=== PATIENT | female | born 1995 | race Caucasian/White ===

== ENCOUNTER 2017-02-03 21:48 | Emergency (ER) | payer OTHER ==
[2017-02-03 22:27] VITALS: BP 116/51; PULSE 95; TEMP 97.9; BMI 21.9
[2017-02-04] MEDS ORDERED: ONDANSETRON *ODT* 4 MG TABLET SL ONE (00:35)
--- NOTE | 2017-02-04 00:35 | PDOC ---
History of Present Illness - General History Source: Patient Exam Limitations: No Limitations - History of Present Illness Initial Comments: 02/04/17 00:39 The patient is a 22 year old female with significant past medical history of asthma who presents to the ED for less than 24 hours of nausea and vomiting. Patient reports she went out drinking last night and woke up today with persistent nausea and several episodes of vomiting. States she is unable to tolerate any fluids or liquids secondary to the nausea and vomiting. Denies any abdominal pain or diarrhea. The patient denies fever, chills, cough, SOB, chest pain, and palpitations. Allergies: NKDA Social History: No alcohol, tobacco, or drug use reported. Past Surgical History: None reported PCP: Dr. Valarie Cochran <Reyna Aguila - Last Filed: 02/04/17 00:39> - General History Source: Patient <BouchraraNiles - Last Filed: 02/04/17 01:45> - General Stated Complaint: LIGHTHEADED/VOMITING BLOOD Time Seen by Provider: 02/04/17 00:32 Past History <Reyna Aguila - Last Filed: 02/04/17 00:39> - Past Medical History Asthma: Yes CVA: No (migraines) GI Disorders: Yes (gastritis,) Psychiatric Problems: Yes (ANXIETY) - Surgical History Abdominal Surgery: Yes (EXP LAP--NEG) - Immunization History Immunization Up to Date: Yes - Psycho/Social/Smoking Cessation Hx Anxiety: Yes Suicidal Ideation: No Smoking History: Never smoked Have you smoked in the past 12 months: No Information on smoking cessation initiated: No Hx Alcohol Use: No Drug/Substance Use Hx: No Substance Use Type: Alcohol <Niles Garcia - Last Filed: 02/04/17 01:45> - Past Medical History Allergies/Adverse Reactions: Allergies Allergy/AdvReac Type Severity Reaction Status Date / Time No Known Drug Allergies Allergy Verified 02/04/17 01:13 pineapple Allergy Swelling Verified 02/03/17 22:23 Home Medications: Ambulatory Orders Ondansetron [Zofran *Odt*] 4 mg SL TID #30 od.tablet 02/04/17 Review of Systems - Review of Systems Able to Perform ROS?: Yes Comments:: 02/04/17 00:39 CONSTITUTIONAL: +decreased PO intake Absent: fever, no chills, no fatigue EYES: Absent: visual changes ENT: Absent: ear pain, no sore throat CARDIOVASCULAR: Absent: chest pain, no palpitations RESPIRATORY: Absent: cough, no SOB GI: +nausea, vomiting Absent: abdominal pain, no constipation, no diarrhea GENITOURINARY: Absent: dysuria, no frequency, no hematuria MUSCULOSKELETAL: Absent: back pain, no arthralgia, no myalgia SKIN: Absent: rash NEURO: Absent: headache <Reyna Aguila - Last Filed: 02/04/17 00:39> *Physical Exam - Vital Signs Last Vital Signs Temp Pulse Resp BP Pulse Ox 97.9 F 95 H 16 116/51 99 02/03/17 22:23 02/03/17 22:23 02/03/17 22:23 02/03/17 22:23 02/03/17 22:23 - Physical Exam Comments: 02/04/17 00:40 GENERAL: Well-appearing, well-nourished. No apparent distress. HEENT: Normocephalic, atraumatic. PERRL, EOM intact. Slightly dry oral mucosa CARDIOVASCULAR: Normal S1, S2. Regular rate and rhythm. PULMONARY: Clear to auscultation bilaterally. ABDOMEN: Soft, non-distended, non-tender. EXTREMITIES: Normal ROM in all four extremities. No gross deformities. SKIN: Warm, dry. No rash NEUROLOGICAL: No focal neurological deficits. <Reyna Aguila - Last Filed: 02/04/17 00:39> - Vital Signs Last Vital Signs Temp Pulse Resp BP Pulse Ox 97.9 F 95 H 16 116/51 99 02/03/17 22:23 02/03/17 22:23 02/03/17 22:23 02/03/17 22:23 02/03/17 22:23 <Niles Garcia - Last Filed: 02/04/17 01:45> Medical Decision Making - Medical Decision Making 02/04/17 01:45 Dr. Garcia: The scribe's documentation has been prepared under my direction and personally reviewed by me in its entirery. I confirm that the note above accurately reflects all work, treatment, procedures, and medical decision making performed by me. <Niles Garcia - Last Filed: 02/04/17 01:45> *DC/Admit/Observation/Transfer - Attestations Scribe Attestion: 02/04/17 00:40 Documentation prepared by Reyna Aguila, acting as medical support assistant for Niles Garcia MD/DO. <Reyna Aguila - Last Filed: 02/04/17 00:39> - Discharge Dispostion Admit: No <Niles Garcia - Last Filed: 02/04/17 01:45> Diagnosis at time of Disposition: Nausea, Gastritis - Discharge Dispostion Disposition: HOME Condition at time of disposition: Stable - Prescriptions Prescriptions: Ondansetron [Zofran *Odt*] 4 mg SL TID #30 od.tablet - Referrals Referrals: Valarie Cochran MD [Primary Care Provider] - Rey Verdin MD [Staff Physician] - - Patient Instructions Printed Discharge Instructions: DI for Nausea -- Adult, DI for Gastritis
[2017-02-04] MEDS ORDERED: ONDANSETRON *ODT* 4 MG TABLET ONE (00:57)
== END 2017-02-04 01:58 | disposition home or self-care (01) ==
LOC: JER 21:48
DX: K29.70 Gastritis, unspecified, without bleeding (principal); G43.909 Migraine, unspecified, not intractable, without status migrainosus; F41.9 Anxiety disorder, unspecified; J45.909 Unspecified asthma, uncomplicated
CPT/HCPCS: 99281-25; 99282-25

== ENCOUNTER 2017-04-30 13:07 | Day surgery (SDC) | payer OTHER ==
[2017-04-28 13:52] VITALS: BMI 21.0
[2017-04-30] MEDS ORDERED: PROPOFOL 20 ML ONE (14:21)
[2017-04-30 15:27] VITALS: TEMP 97
[2017-04-30 16:16] VITALS: BP 113/73; PULSE 77
== END 2017-04-30 16:16 | disposition home or self-care (01) ==
LOC: JASU-ENDO 13:07
PROVIDERS: ATTEND Internal Medicine Gastroenterology
PROC: 0DJD8ZZ Inspection of Lower Intestinal Tract, Via Natural or Artificial Opening Endoscopic (ICD-10-PCS; principal; 2017-04-30 14:00)
DX: K57.30 Diverticulosis of large intestine without perforation or abscess without bleeding (principal); K63.89 Other specified diseases of intestine; K64.8 Other hemorrhoids
CPT/HCPCS: 84703

== ENCOUNTER 2017-07-16 07:48 | Day surgery (SDC) | payer OTHER ==
[2017-07-15 14:22] VITALS: BMI 21.0
[2017-07-16 09:11] VITALS: TEMP 98
[2017-07-16 09:58] VITALS: BP 118/69; PULSE 83
--- NOTE | 2017-07-19 09:44 | PATH ---
Surgical Pathology Report Patient Name: GASTON CONTRERAS [facility]. Rec. #: [id number] /Age/Gender: 1995 (Age: 22) / F Account: [id number] Location: U-ENDOSCOPY Taken: 07/16/2017 Received: 07/16/2017 Reported: 07/19/2017 Physicians: Tevin Vargas M.D. Specimen(s) Received BX DISTAL ESOPHAGUS Clinical History History of hematemesis Mild distal esophagitis, hiatal hernia Final Diagnosis DISTAL ESOPHAGUS, BIOPSY: SQUAMOUS MUCOSA WITH CHANGES OF MILD REFLUX ESOPHAGITIS. Electronically Signed Adali Lora M.D. Gross Description Received in formalin, labeled "biopsy distal esophagus" is a faye, irregular portion of soft tissue measuring 0.6 cm. in greatest dimension. The specimen is submitted in toto in one cassette. /07/16/201707/16/2017
== END 2017-07-16 10:14 | disposition home or self-care (01) ==
LOC: JASU-ENDO 07:48
PROVIDERS: ATTEND Internal Medicine Gastroenterology
PROC: 0DB38ZX Excision of Lower Esophagus, Via Natural or Artificial Opening Endoscopic, Diagnostic (ICD-10-PCS; principal; 2017-07-16 08:30)
DX: K92.0 Hematemesis (principal); L53.8 Other specified erythematous conditions
CPT/HCPCS: 84703; 88305-TC